=== PATIENT | female | born 1980 | race African-American/Black ===

== ENCOUNTER 2017-08-02 16:54 | Emergency (ER) | payer SELFPAY ==
[~2017-08-02] VITALS: Ht 160 cm; Wt 60.0 kg
[2017-08-02 16:55] VITALS: BP 183/95; PULSE 92; RESP 14; TEMP 100.1; O2SAT 100
[2017-08-02] MEDS ORDERED: IOHEXOL 350 MG/ML 10 ML VIAL (for RAD DIAG) IVCONTRAST ONE (16:55)
[2017-08-02] MEDS ORDERED: IBUPROFEN 800 MG TAB PO ONE (17:30)
--- NOTE | 2017-08-02 17:41 | PD ---
HPI Chief Complaint: ENT Complaint Time Seen by Provider: 17:26 Travel History International Travel<30 days: No Contact w/Intl Traveler<30days: No Traveled to known affect area: No History of Present Illness HPI 37-year-old female presents to the emergency Department with complaint of sore throat 2 days. Reports MAXIMUM TEMPERATURE of 102.0. Reports body aches. Reports swelling to the back of her throat and difficulty swallowing her own saliva. Reports painful swallowing. Denies ear pain, cough, nasal congestion. Denies difficulty breathing. Denies vomiting. No known sick contacts with similar symptoms. Has not taken any medications or tried any treatments to alleviate her symptoms. Symptoms are moderate in severity. Has history of VSD and heart murmur. No primary care provider. No known allergies. Has no other medical complaints. No other modifying factors or associated signs and symptoms. PFSH Past Medical History ?: Not LMP: 07/23/17 Social History Tobacco Use: No Allergies-Medications (Allergen,Severity, Reaction): Coded Allergies: No Known Allergies (Unverified , 08/02/17) Reported Meds & Prescriptions Reported Meds & Active Scripts Active No Active Prescriptions or Reported Medications Review of Systems Except as stated in HPI: all other systems reviewed are Neg Physical Exam Narrative GENERAL: Well-nourished, well-developed black female patient, in no acute distress; febrile 100.1 SKIN: Warm and dry. No rash. HEAD: Atraumatic. Normocephalic. EYES: Pupils equal and round at 3 mm with brisk reaction. No scleral icterus. No injection or drainage. PERRLA. ENT: Mucosa pink and dry. Pharynx with tonsillar edema; left worse than right. Uvular edema. Left sided uvular, palatal, and tonsillar deviation. Airway patent. Patient not talking. EARS: Bilateral pinnae and external canals appear within normal limits. Bilateral tympanic membranes without erythema, dullness or perforation.. NECK: Trachea midline. Anterior cervical lymphadenopathy and tenderness. CARDIOVASCULAR: Regular rate and rhythm. No murmur appreciated. RESPIRATORY: No accessory muscle use. Clear to auscultation. Breath sounds equal bilaterally. GASTROINTESTINAL: Flat. MUSCULOSKELETAL: No obvious deformities. No clubbing. No cyanosis. No edema. NEUROLOGICAL: Awake and alert. Oriented 3. No obvious cranial nerve deficits. Motor grossly within normal limits. Normal speech. Moves all extremities. PSYCHIATRIC: Appropriate mood and affect; insight and judgment normal. Data Data Last Documented VS Vital Signs Date Time Temp Pulse Resp B/P (MAP) Pulse Ox O2 Delivery O2 Flow Rate FiO2 08/02/17 16:55 100.1 92 14 183/95 (124) 100 Room Air Orders Orders Group A Rapid Strep Screen (08/02/17 17:01) Influenzae A/B Antigen (08/02/17 17:27) Ibuprofen (Motrin) (08/02/17 17:30) Basic Metabolic Panel (Bmp) (08/02/17 17:41) Complete Blood Count With Diff (08/02/17 17:41) Ct Soft Tiss Neck W Iv Cont (08/02/17 17:41) Iv Access Insert/Monitor (08/02/17 17:41) Methylprednisolone So Succ Inj (Solumedr (08/02/17 17:45) Sodium Chloride 0.9% Flush (Ns Flush) (08/02/17 17:45) Clindamycin Inj (Cleocin Inj) (08/02/17 18:00) MDM Medical Decision Making Medical Screen Exam Complete: Yes Emergency Medical Condition: Yes Medical Record Reviewed: Yes Differential Diagnosis Strep pharyngitis, influenza, peritonsillar abscess Narrative Course 37-year-old female physical exam consistent with possible peritonsillar abscess. Rapid strep ordered in triage and is pending. CBC, BMP, CT soft tissue neck, Solu-Medrol, clindamycin ordered. Patient moved to medical bed and report was given to Dr. Akbar. See her note for final patient disposition. Scripts No Active Prescriptions or Reported Meds Danisha De Jesus Aug 02, 2017 17:41
[2017-08-02] MEDS ORDERED: SODIUM CHLORIDE 0.9% FLUSH 10 ML FLUSH IVF PRN (17:45)
[2017-08-02] MEDS ORDERED: methylPREDNISolone SOD SUCC 125 MG/2 ML VIAL IM ONE (17:45)
[2017-08-02] MEDS ORDERED: CLINDAMYCIN INJ 600 MG in SODIUM CHLORIDE 0.9% INJ 100 ML IV ONE (18:00)
--- NOTE | 2017-08-02 18:28 | PD ---
HPI Chief Complaint: ENT Complaint Time Seen by Provider: 17:28 Travel History International Travel<30 days: No Contact w/Intl Traveler<30days: No Traveled to known affect area: No History of Present Illness HPI 37yo F presented to the ED for throat swelling. She states that she has been "sick" for the past week from working outside in the cold, and then two days ago she woke up with her throat closed. Pt describes the pain as dull and an 8 on the pain scale. She says that it began with a sore throat and cough. Pt states that she she has been experiencing occasional fevers, L ear ache, hot flashes, myalgias and chills. She has not been able to eat anything or speak, and she can drink very little amounts of fluid. Pt has a significant medical history of VSD and an aortic valve replacement to a mechanical valve. She does has dentures after having her teeth pulled in September of 2014. She admits to smoking 10 cigarettes a day, no alcohol or IVDU. Pt denies SOB, sputum production, vomiting, nausea, or diarrhea. Modifying Factors: None Associated Signs & Symptoms: Sore throat, coughing, fevers, difficulty swallowing Risk Factors: None PFSH Past Medical History ?: Not LMP: 07/23/17 Social History Tobacco Use: No Allergies-Medications (Allergen,Severity, Reaction): Coded Allergies: No Known Allergies (Unverified , 08/02/17) Reported Meds & Prescriptions Reported Meds & Active Scripts Active No Active Prescriptions or Reported Medications Review of Systems Except as stated in HPI: all other systems reviewed are Neg HENT: Positive: Sore Throat, Earache Physical Exam Narrative GENERAL: 37yo well-developed, well-nourished female. Alert and oriented x3. Nonverbal, communicated via pen and paper. SKIN: Warm and dry. HEAD: Atraumatic. Normocephalic. EYES: Pupils equal and round. No scleral icterus. No injection or drainage. ENT: No nasal bleeding or discharge. Diffuse tonsillar and uvular edema with erythema. Tympanic membranes intact and nonerythematous. NECK: Trachea midline. No JVD. CARDIOVASCULAR: Regular rate and rhythm. RESPIRATORY: No accessory muscle use. Clear to auscultation. Breath sounds equal bilaterally. GASTROINTESTINAL: Abdomen soft, non-tender, nondistended. Hepatic and splenic margins not palpable. MUSCULOSKELETAL: Extremities without clubbing, cyanosis, or edema. No obvious deformities. NEUROLOGICAL: Awake and alert. No obvious cranial nerve deficits. Motor grossly within normal limits. Normal speech. PSYCHIATRIC: Appropriate mood and affect; insight and judgment normal. Data Data Last Documented VS Vital Signs Date Time Temp Pulse Resp B/P (MAP) Pulse Ox O2 Delivery O2 Flow Rate FiO2 08/02/17 19:13 71 16 143/79 (100) 97 Room Air 08/02/17 16:55 100.1 Orders Orders Group A Rapid Strep Screen (08/02/17 17:01) Influenzae A/B Antigen (08/02/17 17:27) Ibuprofen (Motrin) (08/02/17 17:30) Basic Metabolic Panel (Bmp) (08/02/17 17:41) Complete Blood Count With Diff (08/02/17 17:41) Ct Soft Tiss Neck W Iv Cont (08/02/17 17:41) Iv Access Insert/Monitor (08/02/17 17:41) Methylprednisolone So Succ Inj (Solumedr (08/02/17 17:45) Sodium Chloride 0.9% Flush (Ns Flush) (08/02/17 17:45) Strep Culture (Group A) (08/02/17 17:05) Clindamycin 600 Mg/Ns Premix (Cleocin 60 (08/02/17 19:00) Labs Laboratory Tests Test 08/02/17 18:10 White Blood Count 17.1 TH/MM3 Red Blood Count 3.88 MIL/MM3 Hemoglobin 13.2 GM/DL Hematocrit 37.2 % Mean Corpuscular Volume 95.8 FL Mean Corpuscular Hemoglobin 33.9 PG Mean Corpuscular Hemoglobin Concent 35.4 % Red Cell Distribution Width 13.6 % Platelet Count 286 TH/MM3 Mean Platelet Volume 8.9 FL Neutrophils (%) (Auto) 78.8 % Lymphocytes (%) (Auto) 9.3 % Monocytes (%) (Auto) 11.3 % Eosinophils (%) (Auto) 0.1 % Basophils (%) (Auto) 0.5 % Neutrophils # (Auto) 13.5 TH/MM3 Lymphocytes # (Auto) 1.6 TH/MM3 Monocytes # (Auto) 1.9 TH/MM3 Eosinophils # (Auto) 0.0 TH/MM3 Basophils # (Auto) 0.1 TH/MM3 CBC Comment DIFF FINAL Differential Comment MDM Medical Decision Making Medical Screen Exam Complete: Yes Emergency Medical Condition: Yes Medical Record Reviewed: Yes Interpretation(s) Laboratory Tests Test 08/02/17 18:10 White Blood Count 17.1 TH/MM3 (4.0-11.0) Red Blood Count 3.88 MIL/MM3 (4.00-5.30) Neutrophils (%) (Auto) 78.8 % (16.0-70.0) Monocytes (%) (Auto) 11.3 % (0.0-8.0) Neutrophils # (Auto) 13.5 TH/MM3 (1.8-7.7) Monocytes # (Auto) 1.9 TH/MM3 (0-0.9) Sodium Level 134 MEQ/L (136-145) Potassium Level 2.8 MEQ/L (3.5-5.1) Chloride Level 97 MEQ/L (98-107) Differential Diagnosis Peritonsillar abscess versus uvulitis versus epiglottitis versus pharyngitis Narrative Course IV clindamycin, Solu-Medrol, And pain medications initiated in the ER. Lab work ordered. CAT scan ordered for further evaluation of the throat swelling. Patient is placed on monitors. Physician Communication Physician Communication Case is signed out at [address] Patel awaiting CAT scan in for further evaluation and reevaluation. Disposition based on CAT scan and reevaluation. Diagnosis Primary Impression: Throat swelling Scripts No Active Prescriptions or Reported Meds Christina Akbar MD Aug 02, 2017 18:28
[2017-08-02 18:53] LABS: AUTOMATED NEUTROPHIL # 13.5 TH/MM3 (1.8-7.7); BASOPHIL # 0.1 TH/MM3 (0-0.2); BASOPHIL % 0.5 % (0.0-2.0); EOSINOPHIL % 0.1 % (0.0-4.0); HEMATOCRIT 37.2 % (35.0-46.0); HEMOGLOBIN 13.2 GM/DL (11.6-15.3); LYMPH % 9.3 % (9.0-44.0); LYMPHOCYTE # 1.6 TH/MM3 (1.0-4.8); MEAN CELL VOLUME 95.8 FL (80.0-100.0); MEAN CORPUSCULAR HEMOGLOBIN 33.9 PG (27.0-34.0); MEAN CORPUSCULAR HGB CONC 35.4 % (32.0-36.0); MEAN PLATELET VOLUME 8.9 FL (7.0-11.0); MONO % 11.3 % (0.0-8.0); MONOCYTE # 1.9 TH/MM3 (0-0.9); NEUT % 78.8 % (16.0-70.0); PLATELET COUNT 286 TH/MM3 (150-450); RED BLOOD COUNT 3.88 MIL/MM3 (4.00-5.30); RED CELL DISTRIBUTION WIDTH 13.6 % (11.6-17.2); WHITE BLOOD COUNT 17.1 TH/MM3 (4.0-11.0)
[2017-08-02] MEDS ORDERED: CLINDAMYCIN 600 MG/NS PREMIX 50 ML IV ONE (19:00)
[2017-08-02 19:12] LABS: BICARBONATE 26.1 MEQ/L (21.0-32.0); CALCIUM 8.7 MG/DL (8.5-10.1); CREATININE 0.84 MG/DL (0.50-1.00)
[2017-08-02 19:13] VITALS: BP 143/79; PULSE 71; RESP 16; O2SAT 97
[2017-08-02] MEDS ORDERED: NS + KCL 40 MEQ INJ 1,000 ML IV SCH (19:30)
--- NOTE | 2017-08-02 20:06 | RADRPT ---
EXAM DATE/TIME: 08/02/2017 19:50 [facility] COMPARISON: No previous studies available for comparison. INDICATIONS : Sore throat for 3 days. IV CONTRAST: 98 cc Omnipaque 350 (iohexol) IV RADIATION DOSE: 23.07 CTDIvol (mGy) MEDICAL HISTORY : None SURGICAL HISTORY : None. ENCOUNTER: Initial ACUITY: 3 days PAIN SCALE: 7/10 LOCATION: Bilateral throat TECHNIQUE: Volumetric scanning of the neck was performed. Using automated exposure control and adjustment of th e mA and/or kV according to patient size, radiation dose was kept as low as reasonably achievable to obtain optimal diagnostic quality images. DICOM format image data is available electronically for r eview and comparison. FINDINGS: NASOPHARYNX: The nasopharyngeal airway has a normal configuration. No mucosal thickening or mass is seen. OROPHARYNX: Low-density mass with rim enhancement seen on the left at the level of the tongue base, measures appr oximately 17 x 22 mm in size and most likely a tonsillar abscess. LARYNX: The supraglottic, glottic, and infraglottic structures are intact. PARAPHARYNGEAL: The parapharyngeal space is intact. SALIVARY GLANDS: The parotid and submandibular glands are intact. LYMPH NODES: No enlarged or necrotic-appearing nodes. THYROID: Homogeneous enhancement without evidence of nodule. BONES: Unremarkable. CONCLUSION: 17 x 22 mm left tonsillar abscess. Cristofer Dominguez MD on August 02, 2017 at 20:02 Board Certified Radiologist. This report was verified electronically.
[2017-08-02 20:30] VITALS: BP 151/97; PULSE 71; RESP 16; O2SAT 96
[2017-08-02] MEDS ORDERED: IBUP-232 PO (21:55)
[2017-08-02] MEDS ORDERED: PRED20 PO (21:55)
[2017-08-02] MEDS ORDERED: MEDR4PAK PO (21:55)
[2017-08-02] MEDS ORDERED: CLIN300C5 PO (21:55)
--- NOTE | 2017-08-02 21:56 | PD ---
Physical Exam Narrative Patient signed out at discharge pending CT scan soft tissue neck. Patient has posterior oropharynx erythema and edema and potential left-sided swelling greater than right. CT scan resulted as a left peritonsillar abscess 1.7 x 1.[address] exam reexamination, patient feels greatly improved, swelling has gone down significantly, patient's voice has returned to near normal patient is tolerating by mouth easily. Treatment options discussed including Roxana of abscess and conservative treatment with antibiotics. Considering patient's interval improvement, conservative management with oral antibiotics or steroids and anti-inflammatories pursued at this time. Data Data Last Documented VS Vital Signs Date Time Temp Pulse Resp B/P (MAP) Pulse Ox O2 Delivery O2 Flow Rate FiO2 08/02/17 20:30 71 16 151/97 (115) 96 Room Air 08/02/17 16:55 100.1 Orders Orders Group A Rapid Strep Screen (08/02/17 17:01) Influenzae A/B Antigen (08/02/17 17:27) Ibuprofen (Motrin) (08/02/17 17:30) Basic Metabolic Panel (Bmp) (08/02/17 17:41) Complete Blood Count With Diff (08/02/17 17:41) Ct Soft Tiss Neck W Iv Cont (08/02/17 17:41) Iv Access Insert/Monitor (08/02/17 17:41) Methylprednisolone So Succ Inj (Solumedr (08/02/17 17:45) Sodium Chloride 0.9% Flush (Ns Flush) (08/02/17 17:45) Strep Culture (Group A) (08/02/17 17:05) Clindamycin 600 Mg/Ns Premix (Cleocin 60 (08/02/17 19:00) Ns + Kcl 40 Meq Inj (Ns + Kcl 40 Meq Inj (08/02/17 19:30) Iohexol 350 Inj (Omnipaque 350 Inj) (08/02/17 16:55) Labs Laboratory Tests Test 08/02/17 18:10 White Blood Count 17.1 TH/MM3 Red Blood Count 3.88 MIL/MM3 Hemoglobin 13.2 GM/DL Hematocrit 37.2 % Mean Corpuscular Volume 95.8 FL Mean Corpuscular Hemoglobin 33.9 PG Mean Corpuscular Hemoglobin Concent 35.4 % Red Cell Distribution Width 13.6 % Platelet Count 286 TH/MM3 Mean Platelet Volume 8.9 FL Neutrophils (%) (Auto) 78.8 % Lymphocytes (%) (Auto) 9.3 % Monocytes (%) (Auto) 11.3 % Eosinophils (%) (Auto) 0.1 % Basophils (%) (Auto) 0.5 % Neutrophils # (Auto) 13.5 TH/MM3 Lymphocytes # (Auto) 1.6 TH/MM3 Monocytes # (Auto) 1.9 TH/MM3 Eosinophils # (Auto) 0.0 TH/MM3 Basophils # (Auto) 0.1 TH/MM3 CBC Comment DIFF FINAL Differential Comment Blood Urea Nitrogen 8 MG/DL Creatinine 0.84 MG/DL Random Glucose 83 MG/DL Calcium Level 8.7 MG/DL Sodium Level 134 MEQ/L Potassium Level 2.8 MEQ/L Chloride Level 97 MEQ/L Carbon Dioxide Level 26.1 MEQ/L Anion Gap 11 MEQ/L Estimat Glomerular Filtration Rate 92 ML/MIN MDM Medical Record Reviewed: Yes Supervised Visit with FEDE: Yes Differential Diagnosis Peritonsillar abscess Narrative Course C narrative. Discharge Diagnosis Primary Impression: Throat swelling Additional Impression: Peritonsillar abscess Patient Instructions: General Instructions, Peritonsillar Abscess (ED) Additional Instruction: Clindamycin 300 mg 4 times daily for 10 days. Probiotics as discussed. Prednisone 40 mg daily for 3 days, followed by a Medrol Dosepak taper. Ibuprofen 600 mg every 6-8 hours for pain and inflammation. Follow-up with ENT and your doctor. Return promptly for worsening Scripts Ibuprofen (Ibuprofen) 600 Mg Tab 600 MG PO Q8H Y for PAIN, #15 TAB 0 Refills Prov: Ricardo Donovan MD 08/02/17 Methylprednisolone Dosepak (Medrol Dosepak) 4 Mg Dspk 4 MG PO DIRECTED, #1 DSPK 0 Refills Per Pharmacist direction Prov: Ricardo Donovan MD 08/02/17 Prednisone (Prednisone) 20 Mg Tab 40 MG PO DAILY, #10 TAB 0 Refills Take 40 mg (2 tablets) daily for 5 days Prov: Ricardo Donovan MD 08/02/17 Clindamycin (Clindamycin) 300 Mg Cap 300 MG PO Q6H for Infection for 10 Days, #40 CAP 0 Refills Prov: Ricardo Donovan MD 08/02/17 Disposition: 01 DISCHARGE HOME Condition: Stable Ricardo Donovan MD Aug 02, 2017 21:56
[2017-08-02 22:02] VITALS: BP 162/90
== END 2017-08-02 22:12 | disposition home or self-care (01) ==
LOC: NEPE 16:54
DX: J36 Peritonsillar abscess (principal); Q21.0 Ventricular septal defect
CPT/HCPCS: 70491; 80048; 85025; 87081; 87804; 87880; 96365; 96372; 96375; 99285; J2930; J3480; Q9967